=== PATIENT | female | born 1985 | race Caucasian/White ===

== ENCOUNTER 2017-03-13 16:48 | Emergency (ER) | payer BC ==
--- NOTE | 2017-03-13 17:30 | EDM.PDOC ---
ED HPI GENERAL MEDICAL PROBLEM - General Chief Complaint: Respiratory Problem Stated Complaint: WHEN BREATHING PAIN/CHEST ABDOMEN Time Seen by Provider: 03/13/17 16:55 - History of Present Illness INITIAL COMMENTS - FREE TEXT/NARRATIVE: HISTORY AND PHYSICAL: History of present illness: This is a 32-year-old female presenting to the emergency department complaining of rib pain. Patient tells me that it has been ongoing since this past Saturday. She also complains of pain when exhaling. Denies any trauma. Denies any specific chest pain. No radiating pain. Denies any nausea or vomiting. Review of systems: As per history of present illness and below otherwise all systems reviewed and negative. Past medical history: As per history of present illness and as reviewed below otherwise noncontributory. Surgical history: As per history of present illness and as reviewed below otherwise noncontributory. Social history: No reported history of drug or alcohol abuse. Family history: As per history of present illness and as reviewed below otherwise noncontributory. Physical exam: HEENT: Atraumatic, normocephalic, pupils reactive, negative for conjunctival pallor or scleral icterus, mucous membranes moist, throat clear, neck supple, nontender, trachea midline. Lungs: Clear to auscultation, breath sounds equal bilaterally, tenderness to palpation over the chest wall.. Heart: S1S2, regular, negative for clicks, rubs, or JVD. Abdomen: Soft, nondistended, nontender. Negative for masses or hepatosplenomegaly. Negative for costovertebral tenderness. Pelvis: Stable nontender. Genitourinary: Deferred. Rectal: Deferred. Extremities: Atraumatic, negative for cords or calf pain. Neurovascular unremarkable. Neuro: Awake, alert, oriented. Cranial nerves II through XII unremarkable. Cerebellum unremarkable. Motor and sensory unremarkable throughout. Exam nonfocal. Diagnostics: Chest x-ray CBC CMP troponin and EKG beta hCG lipase Therapeutics: Toradol 60mg IM once Impression: Costochondritis Plan: Discharge home. Follow-up with primary care provider. Naproxen 500 mg twice a day 14 days #28 0 refills Upper Epigastric Pain Score (Numeric/FACES): 7 - Related Data Allergies Allergy/AdvReac Type Severity Reaction Status Date / Time No Known Allergies Allergy Verified 11/01/14 15:24 CDT Home Meds: Home Meds Lisinopril 10 mg PO DAILY 03/13/17 [History] Naproxen 500 mg PO BID PRN #28 tablet 03/13/17 [Rx] Past Medical History HEENT History: Reports: None Cardiovascular History: Reports: Hypertension Respiratory History: Reports: None Gastrointestinal History: Reports: None Genitourinary History: Reports: None Musculoskeletal History: Reports: None Neurological History: Reports: None Psychiatric History: Reports: None Endocrine/Metabolic History: Reports: None Hematologic History: Reports: None Immunologic History: Reports: None Oncologic (Cancer) History: Reports: None Dermatologic History: Reports: None - Infectious Disease History Infectious Disease History: Reports: Chicken Pox - Past Surgical History Head Surgeries/Procedures: Reports: None Female Surgical History: Reports: Section Musculoskeletal Surgical History: Reports: Arthroscopic Knee Social & Family History - Family History Family Medical History: Noncontributory Endocrine/Metabolic: Reports: Diabetes, type II Oncologic: Reports: Thyroid - Tobacco Use Smoking Status *Q: Current Every Day Smoker Years of Tobacco use: 8 Packs/Tins Daily: 0.5 - Caffeine Use Caffeine Use: Reports: Coffee, Tea - Alcohol Use Days Per Week of Alcohol Use: 0 - Recreational Drug Use Recreational Drug Use: No - Living Situation & Occupation Occupation: Employed ED ROS GENERAL - Review of Systems Review Of Systems: See Below (see dictation) ED EXAM, GENERAL - Physical Exam Exam: See Below (see dictation) Course - Vital Signs Text/Narrative:: 32-year-old female in no significant past history who presented with a chief complaint of rib pain and an discomfort with exhalation. Workup was done and she indicated a normal chest x-ray, EKG, CBC and CMP. Given the reproducible pain on palpation I do feel that it was costochondritis. Patient was advised to take an anti-inflammatory such as the one prescribed, naproxen. Patient was advised follow-up with primary care provider. Patient agrees to the plan. Last Recorded V/S: Last Vital Signs Temp 36.3 C 03/13/17 17:04 CDT Pulse 77 03/13/17 18:58 CDT Resp 16 03/13/17 18:58 CDT BP 126/85 03/13/17 18:58 CDT Pulse Ox 95 03/13/17 18:58 CDT - Orders/Labs/Meds Labs: Laboratory Tests 08/03/13/17 03/13/17 Range/Units 17:34 CDT 17:34 CDT 17:34 CDT WBC 10.29 (4.0-11.0) K/uL RBC 4.29 L (4.30-5.90) M/uL Hgb 13.6 (12.0-16.0) g/dL Hct 39.3 (36.0-46.0) % MCV 91.6 (80.0-98.0) fL MCH 31.7 (27.0-32.0) pg MCHC 34.6 (31.0-37.0) g/dL RDW Std Deviation 43.1 (28.0-62.0) fl RDW Coeff of Mayra 13 (11.0-15.0) % Plt Count 299 (150-400) K/uL MPV 10.70 (7.40-12.00) fL Neut % (Auto) 62.1 (48.0-80.0) % Lymph % (Auto) 29.0 (16.0-40.0) % Woodward % (Auto) 6.8 (0.0-15.0) % Eos % (Auto) 1.9 (0.0-7.0) % Baso % (Auto) 0.2 (0.0-1.5) % Neut # (Auto) 6.4 H (1.4-5.7) K/uL Lymph # (Auto) 3.0 H (0.6-2.4) K/uL Woodward # (Auto) 0.7 (0.0-0.8) K/uL Eos # (Auto) 0.2 (0.0-0.7) K/uL Baso # (Auto) 0.0 (0.0-0.1) K/uL Nucleated RBC % 0.0 /100WBC Nucleated RBCs # 0 K/uL Sodium 139 (136-146) mmol/L Potassium 3.7 (3.5-5.1) mmol/L Chloride 108 (98-110) mmol/L Carbon Dioxide 22 (21-31) mmol/L BUN 15 (6.0-23.0) mg/dL Creatinine 0.7 (0.6-1.5) mg/dL Est Cr Clr Drug Dosing 96.33 mL/min Estimated GFR (MDRD) > 60.0 ml/min Glucose 100 (60-110) mg/dL Calcium 9.3 (8.8-10.8) mg/dL Total Bilirubin 0.3 (0.1-1.5) mg/dL AST 15 (5-40) IU/L ALT 18 (8-54) IU/L Alkaline Phosphatase 63 (40-150) Troponin I (0.0-0.29) NG/ML Total Protein 7.1 (6.0-8.0) g/dL Albumin 4.3 (3.5-5.0) g/dL Globulin 2.8 (2.0-3.5) g/dL Albumin/Globulin Ratio 1.5 (1.3-2.8) Lipase 19 (7-80) U/L HCG, Qual NEGATIVE (NEG) 03/13/17 Range/Units 17:34 CDT WBC (4.0-11.0) K/uL RBC (4.30-5.90) M/uL Hgb (12.0-16.0) g/dL Hct (36.0-46.0) % MCV (80.0-98.0) fL MCH (27.0-32.0) pg MCHC (31.0-37.0) g/dL RDW Std Deviation (28.0-62.0) fl RDW Coeff of Mayra (11.0-15.0) % Plt Count (150-400) K/uL MPV (7.40-12.00) fL Neut % (Auto) (48.0-80.0) % Lymph % (Auto) (16.0-40.0) % Woodward % (Auto) (0.0-15.0) % Eos % (Auto) (0.0-7.0) % Baso % (Auto) (0.0-1.5) % Neut # (Auto) (1.4-5.7) K/uL Lymph # (Auto) (0.6-2.4) K/uL Woodward # (Auto) (0.0-0.8) K/uL Eos # (Auto) (0.0-0.7) K/uL Baso # (Auto) (0.0-0.1) K/uL Nucleated RBC % /100WBC Nucleated RBCs # K/uL Sodium (136-146) mmol/L Potassium (3.5-5.1) mmol/L Chloride (98-110) mmol/L Carbon Dioxide (21-31) mmol/L BUN (6.0-23.0) mg/dL Creatinine (0.6-1.5) mg/dL Est Cr Clr Drug Dosing mL/min Estimated GFR (MDRD) ml/min Glucose (60-110) mg/dL Calcium (8.8-10.8) mg/dL Total Bilirubin (0.1-1.5) mg/dL AST (5-40) IU/L ALT (8-54) IU/L Alkaline Phosphatase (40-150) Troponin I < 0.10 (0.0-0.29) NG/ML Total Protein (6.0-8.0) g/dL Albumin (3.5-5.0) g/dL Globulin (2.0-3.5) g/dL Albumin/Globulin Ratio (1.3-2.8) Lipase (7-80) U/L HCG, Qual (NEG) Meds: Medications Discontinued Medications Generic Name Dose Route Start Last Admin Trade Name Freq PRN Reason Stop Dose Admin Ketorolac Tromethamine 30 mg 03/13/17 17:37 CDT 03/13/17 17:50 CDT Toradol IVPUSH 03/13/17 17:38 CDT Not Given ONETIME ONE Ketorolac Tromethamine 60 mg 03/13/17 17:45 CDT 03/13/17 18:06 CDT Toradol IM 03/13/17 17:46 CDT 60 mg ONETIME ONE Administration Departure - Departure Time of Disposition: 18:23 Disposition: Home, Self-Care 01 Condition: Good Clinical Impression: Costochondritis - Discharge Information Prescriptions: Naproxen 500 mg PO BID PRN #28 tablet PRN Reason: Pain Instructions: Costochondritis, [id number] Referrals: Rom Oneil DO [Primary Care Provider] - Forms: ED Department Discharge
[2017-03-13] MEDS ORDERED: Ketorolac 30 MG/ML SDV IVPUSH ONE (17:37)
[2017-03-13] MEDS ORDERED: Ketorolac 60 MG/2 ML SDV IM ONE (17:45)
[2017-03-13 18:05] LABS: CHLORIDE,CL 108 mmol/L (98-110); SODIUM,NA 139 mmol/L (136-146)
[2017-03-13 18:59] VITALS: BP 126/85
--- NOTE | 2017-03-14 11:07 | CR ---
EXAM DATE: 03/13/17 PATIENT'S AGE: 32 Patient: LYLY RAPP Facility: [facility], [place] Site . Site : 1985 Study: XRay Chest [id number]/23/2017 6:17:17 PM Ordering Physician: Osmar Sofia Final Report: INDICATION: Short of breath. Technique: Chest, single view. Impression: Normal heart size. No consolidation, effusion or pneumothorax. Possible nodule versus an area of parenchymal superimposition ,this is in the medial right upper lobe and is projected over the medial aspect of the right 1st rib. Suggest a follow up PA a standard chest radiograph for evaluation. Dictated by Iker Dutta MD @ Mar 13 2017 6:53PM (Electronic Signature) Report Signed by Proxy. PRASHANT
== END 2017-03-13 18:59 | disposition home or self-care (01) ==
LOC: MW.ED 16:48
DX: M94.0 Chondrocostal junction syndrome [Tietze] (principal); F17.210 Nicotine dependence, cigarettes, uncomplicated; Z98.890 Other specified postprocedural states; Z79.899 Other long term (current) drug therapy
CPT/HCPCS: 36415; 71010; 80053; 83690; 84484; 84703; 85025; 93005; 96372; 99284; J1885; 99283

== ENCOUNTER 2017-06-24 13:42 | Emergency (ER) | payer BC ==
[2017-06-24] MEDS ORDERED: Ketorolac 60 MG/2 ML SDV IM ONE (14:25)
--- NOTE | 2017-06-24 14:44 | EDM.PDOC ---
ED HPI GENERAL MEDICAL PROBLEM - General Chief Complaint: Upper Extremity Injury/Pain Stated Complaint: RT SHOULDER PAIN Time Seen by Provider: 06/24/17 13:44 Source of Information: Reports: Patient History Limitations: Reports: No Limitations - History of Present Illness INITIAL COMMENTS - FREE TEXT/NARRATIVE: HISTORY AND PHYSICAL: History of present illness: Patient is a 32-year-old female who presents to the emergency room today with complaints of right shoulder pain 4 days. She states that the pain started in her upper neck and radiates mainly into the right shoulder. She has a tingling sensation that runs down her right arm and into her fingertips. She is concerned that she is losing some filter tip catcher strength and of the paresthesias. She denies any previous injury or surgery to the affected extremity or cervical spine. Denies any recent trauma or injuries. Denies any headache, change in vision, urinary or bowel incontinence Denies any fever, chills, chest pain, shortness of breath. Denies any chance of , history of tubal ligation. Review of systems: As per history of present illness and below otherwise all systems reviewed and negative. Past medical history: As per history of present illness and as reviewed below otherwise noncontributory. Surgical history: As per history of present illness and as reviewed below otherwise noncontributory. Social history: No reported history of drug or alcohol abuse. Family history: As per history of present illness and as reviewed below otherwise noncontributory. Physical exam: HEENT: Atraumatic, normocephalic, pupils reactive, negative for conjunctival pallor or scleral icterus, mucous membranes moist, throat clear, neck supple, nontender, trachea midline. Cervical spine/Back: No nuchal rigidity. No pin point vertebral tenderness, crepitus, obvious deformities or step-offs. Able to walk on her toes and heels appropriately. Lungs: Clear to auscultation, breath sounds equal bilaterally, chest nontender. Heart: S1S2, regular, negative for clicks, rubs, or JVD. Abdomen: Soft, nondistended, nontender. Negative for masses or hepatosplenomegaly. Negative for costovertebral tenderness. Pelvis: Stable nontender. Genitourinary: Deferred. Rectal: Deferred. Extremities: Atraumatic, full range of motion to all extremities, has increased pain with range of motion of the right shoulder (when lifting straight up in air ). Equal and strong upper extremity hand grasp. Strong radial pulses bilaterally. CMS is intact bilaterally. Patient does have muscular tenderness when pressing along the scapula on the right. Neurovascular unremarkable. Skin: Warm, dry, and intact. No rashes or lesions noted. Neuro: Awake, alert, oriented. Cranial nerves II through XII unremarkable. Cerebellum unremarkable. Motor and sensory unremarkable throughout. Exam nonfocal. The CT and x-ray results were discussed with the patient. We talked about her following up with the orthopedic provider in the next week or so for further evaluation. If she continues to have pain they may want to do further imaging such as an MRI. Will prescribe the patient a Medrol Dosepak and Cataflam 1 tab 3 times a day when necessary, dispense 20 no refills. Patient voices understanding and is agreeable to plan of care. Denies any further questions at this time. Diagnostics: CT cervical spine, x-ray right shoulder Therapeutics: Toradol Impression: Right shoulder pain Plan: 1. Your x-ray and CT scan were normal today. Please take the steroid and anti- inflammatory as directed. Gentle heat may be applied to the area for comfort. Discussed you should follow-up with orthopedic in the next week or so for further evaluation if you continue to have pain. 2. Follow-up with her primary caregiver in the next 1-2 days. Return to the ED as needed and as discussed. Definitive disposition and diagnosis as appropriate pending reevaluation and review of above. Duration: Day(s): Location: Reports: Upper Extremity, Right Right Shoulder Pain Score (Numeric/FACES): 10 - Related Data Allergies Allergy/AdvReac Type Severity Reaction Status Date / Time No Known Allergies Allergy Verified 06/24/17 14:12 Home Meds: Home Meds Lisinopril 10 mg PO DAILY 03/13/17 [History] Past Medical History HEENT History: Reports: None Cardiovascular History: Reports: Hypertension Respiratory History: Reports: None Gastrointestinal History: Reports: None Genitourinary History: Reports: None Musculoskeletal History: Reports: None Neurological History: Reports: None Psychiatric History: Reports: None Endocrine/Metabolic History: Reports: None Hematologic History: Reports: None Immunologic History: Reports: None Oncologic (Cancer) History: Reports: None Dermatologic History: Reports: None - Infectious Disease History Infectious Disease History: Reports: Chicken Pox - Past Surgical History Head Surgeries/Procedures: Reports: None Female Surgical History: Reports: Section Musculoskeletal Surgical History: Reports: Arthroscopic Knee Social & Family History - Family History Family Medical History: Noncontributory Endocrine/Metabolic: Reports: Diabetes, type II Oncologic: Reports: Thyroid - Tobacco Use Smoking Status *Q: Current Every Day Smoker Years of Tobacco use: 9 Packs/Tins Daily: 0.5 - Caffeine Use Caffeine Use: Reports: Coffee - Alcohol Use Days Per Week of Alcohol Use: 0 - Recreational Drug Use Recreational Drug Use: No - Living Situation & Occupation Occupation: Employed Review of Systems - Review of Systems Review Of Systems: ROS reveals no pertinent complaints other than HPI. ED EXAM, GENERAL - Physical Exam Exam: See Below (See dictation) Course - Vital Signs Last Recorded V/S: Last Vital Signs Temp 98.6 F 06/24/17 14:13 Pulse 79 06/24/17 14:13 Resp 14 06/24/17 14:13 BP 128/71 06/24/17 14:13 Pulse Ox 96 06/24/17 14:13 - Orders/Labs/Meds Meds: Medications Discontinued Medications Generic Name Dose Route Start Last Admin Trade Name Freq PRN Reason Stop Dose Admin Ketorolac Tromethamine 60 mg 06/24/17 14:25 06/24/17 14:40 Toradol IM 06/24/17 14:26 60 mg ONETIME ONE Administration Departure - Departure Time of Disposition: 15:55 Disposition: Home, Self-Care 01 Clinical Impression: Shoulder pain, right Qualifiers: Chronicity: acute Qualified Code(s): M25.511 - Pain in right shoulder - Discharge Information Referrals: PCP,None [Primary Care Provider] - Forms: ED Department Discharge Additional Instructions: My general discharge The following information is given to patients seen in the emergency department who are being discharged to home. This information is to outline your options for follow-up care. We provide all patients seen in our emergency department with a follow-up referral. The need for follow-up, as well as the timing and circumstances, are variable depending upon the specifics of your emergency department visit. If you don't have a primary care physician on staff, we will provide you with a referral. We always advise you to contact your personal physician following an emergency department visit to inform them of the circumstance of the visit and for follow-up with them and/or the need for any referrals to a consulting specialist. The emergency department will also refer you to a specialist when appropriate. This referral assures that you have the opportunity for follow-up care with a specialist. All of these measure are taken in an effort to provide you with optimal care, which includes your follow-up. Under all circumstances we always encourage you to contact your private physician who remains a resource for coordinating your care. When calling for follow-up care, please make the office aware that this follow-up is from your recent emergency room visit. If for any reason you are refused follow-up, please contact the [facility] at and asked to speak to the emergency department charge nurse. [facility] [address], [address] [place] [address] 1. Your x-ray and CT scan were normal today. Please take the steroid and anti- inflammatory as directed. Gentle heat may be applied to the area for comfort. Discussed you should follow-up with orthopedic in the next week or so for further evaluation if you continue to have pain. 2. Follow-up with her primary caregiver in the next 1-2 days. Return to the ED as needed and as discussed.
--- NOTE | 2017-06-24 15:17 | CR ---
EXAMINATION: Right shoulder HISTORY: Pain COMPARISON: None TECHNIQUE: 3 views FINDINGS/IMPRESSION: There is no acute osseous abnormality, dislocation, or fracture. All mineralizat ion and joint spaces appear normal.
--- NOTE | 2017-06-24 15:20 | CT ---
EXAMINATION: CT cervical spine HISTORY: Pain COMPARISON: Radiographs dated 04/23/2016 TECHNIQUE: Axial CT images obtained through the cervical spine without contrast. Coronal and sagittal reconstructions obtained. FINDINGS: The cervical spinal alignment appears normal. The vertebral body heights and disc spaces ap pear well-maintained. No fracture or dislocation. Bone mineralization is normal. The paravertebral so ft tissues appear normal. The lung apices are clear. The visualized intracranial compartments appear normal. IMPRESSION: Unremarkable CT cervical spine.
[2017-06-24 16:25] VITALS: BP 112/64
== END 2017-06-24 16:19 | disposition home or self-care (01) ==
LOC: MW.ED 13:42
DX: M25.511 Pain in right shoulder (principal); I10 Essential (primary) hypertension; F17.210 Nicotine dependence, cigarettes, uncomplicated; Z79.899 Other long term (current) drug therapy
CPT/HCPCS: 72125; 73030; 96372; 99283; J1885

== ENCOUNTER 2017-07-29 13:55 | Emergency (ER) | payer BC ==
--- NOTE | 2017-07-29 14:00 | EDM.PDOC ---
ED HPI GENERAL MEDICAL PROBLEM - General Chief Complaint: Fever Stated Complaint: COLD,FEVER Time Seen by Provider: 07/29/17 14:00 Source of Information: Reports: Patient History Limitations: Reports: No Limitations - History of Present Illness INITIAL COMMENTS - FREE TEXT/NARRATIVE: HISTORY AND PHYSICAL: History of present illness: Patient is a 32-year-old female who presents to the emergency room today with complaints of a cough. She states she was diagnosed with influenza last week and was actually hospitalized for IV fluids and fever management. She was discharged to home with [place] and off throughout. She states since her discharge she feels like her cough is becoming more productive and she is concerned she may have a pneumonia. Review of systems: As per history of present illness and below otherwise all systems reviewed and negative. Past medical history: As per history of present illness and as reviewed below otherwise noncontributory. Surgical history: As per history of present illness and as reviewed below otherwise noncontributory. Social history: No reported history of drug or alcohol abuse. Family history: As per history of present illness and as reviewed below otherwise noncontributory. Physical exam: Gen.: Well-developed and well-nourished 32-year-old female. Alert and oriented. Nontoxic appearing. HEENT: Atraumatic, normocephalic, pupils reactive, negative for conjunctival pallor or scleral icterus, mucous membranes moist, tympanic membranes normal bilaterally, throat clear, neck supple, nontender, trachea midline. Lungs: Clear to auscultation, breath sounds equal bilaterally, chest nontender. Heart: S1S2, regular rate and rhythm Abdomen: Soft, nondistended, nontender. Negative for masses or hepatosplenomegaly. Negative for costovertebral tenderness. Pelvis: Stable nontender. Genitourinary: Deferred. Rectal: Deferred. Extremities: Atraumatic, cell extremities herself without difficulty or deficits , negative for cords or calf pain. Neurovascular unremarkable. Neuro: Awake, alert, oriented. Cranial nerves II through XII unremarkable. Cerebellum unremarkable. Motor and sensory unremarkable throughout. Exam nonfocal. Labs and chest x-ray are negative. Will treat the cough and fever as a bronchitis with Z-pack and inhaler PRN. Tessalon Perles have been given for cough. She may continue to use the cough syrup and [place] she has at home. Started her to follow up with her primary care provider in the next 1-2 days. She is agreeable and voices understanding. Diagnostics: CBC, CMP, chest x-ray Therapeutics: Chao Impression: History of influenza Bronchitis Plan: 1. Azithromycin, Tessalone Pearls, and Inhaler have been prescribed for you and have been sent to your pharmacy, for pickup. 2. Please continue to provide supportive care measures Haldol and/or ibuprofen as needed for pain and fever management. Coolmist humidifier may be beneficial. Small frequent sips of fluids to prevent dehydration. 3. Follow up with her primary care provider in the next 1-2 days. Return to the ED as needed and as discussed. Definitive disposition and diagnosis as appropriate pending reevaluation and review of above. Chest Pain Score (Numeric/FACES): 7 - Related Data Allergies Allergy/AdvReac Type Severity Reaction Status Date / Time No Known Allergies Allergy Verified 07/29/17 14:17 Home Meds: Home Meds Lisinopril 10 mg PO DAILY 03/13/17 [History] Albuterol [Ventolin HFA] 1 puff INH Q4H #1 inhaler 07/29/17 [Rx] Azithromycin [Zithromax] 250 mg PO DAILY 5 Days #6 tablet 07/29/17 [Rx] Benzonatate [Tessalon Perles] 100 mg PO TID PRN 10 Days #30 cap 07/29/17 [Rx] Past Medical History HEENT History: Reports: None Cardiovascular History: Reports: Hypertension Respiratory History: Reports: None Gastrointestinal History: Reports: None Genitourinary History: Reports: None Musculoskeletal History: Reports: None Neurological History: Reports: None Psychiatric History: Reports: None Endocrine/Metabolic History: Reports: None Hematologic History: Reports: None Immunologic History: Reports: None Oncologic (Cancer) History: Reports: None Dermatologic History: Reports: None - Infectious Disease History Infectious Disease History: Reports: Chicken Pox - Past Surgical History Head Surgeries/Procedures: Reports: None Female Surgical History: Reports: Section Musculoskeletal Surgical History: Reports: Arthroscopic Knee Social & Family History - Family History Family Medical History: Noncontributory Endocrine/Metabolic: Reports: Diabetes, type II Oncologic: Reports: Thyroid - Tobacco Use Smoking Status *Q: Current Every Day Smoker Years of Tobacco use: 9 Packs/Tins Daily: 0.5 - Caffeine Use Caffeine Use: Reports: Coffee - Alcohol Use Days Per Week of Alcohol Use: 0 - Recreational Drug Use Recreational Drug Use: No - Living Situation & Occupation Occupation: Employed ED ROS GENERAL - Review of Systems Review Of Systems: ROS reveals no pertinent complaints other than HPI. ED EXAM, GENERAL - Physical Exam Exam: See Below (See dictation) Course - Vital Signs Last Recorded V/S: Last Vital Signs Temp 99.0 F 07/29/17 14:13 Pulse 96 07/29/17 14:13 Resp 18 07/29/17 14:13 BP 128/75 07/29/17 14:13 Pulse Ox 96 07/29/17 14:13 - Orders/Labs/Meds Orders: Active Orders 24 hr Category Date Time Status RT Aerosol Therapy [RC] ASDIRECTED Care 07/29/17 14:31 Active Labs: Laboratory Tests 07/29/17 07/29/17 Range/Units 14:38 14:38 WBC 10.13 (4.0-11.0) K/uL RBC 4.20 L (4.30-5.90) M/uL Hgb 13.4 (12.0-16.0) g/dL Hct 37.8 (36.0-46.0) % MCV 90.0 (80.0-98.0) fL MCH 31.9 (27.0-32.0) pg MCHC 35.4 (31.0-37.0) g/dL RDW Std Deviation 43.8 (28.0-62.0) fl RDW Coeff of Mayra 13 (11.0-15.0) % Plt Count 237 (150-400) K/uL MPV 10.50 (7.40-12.00) fL Neut % (Auto) 73.5 (48.0-80.0) % Lymph % (Auto) 19.9 (16.0-40.0) % [place] % (Auto) 6.3 (0.0-15.0) % Eos % (Auto) 0.2 (0.0-7.0) % Baso % (Auto) 0.1 (0.0-1.5) % Neut # (Auto) 7.4 H (1.4-5.7) K/uL Lymph # (Auto) 2.0 (0.6-2.4) K/uL [place] # (Auto) 0.6 (0.0-0.8) K/uL Eos # (Auto) 0.0 (0.0-0.7) K/uL Baso # (Auto) 0.0 (0.0-0.1) K/uL Nucleated RBC % 0.0 /100WBC Nucleated RBCs # 0 K/uL Sodium 136 (136-146) mmol/L Potassium 3.9 (3.5-5.1) mmol/L Chloride 105 (98-110) mmol/L Carbon Dioxide 20 L (21-31) mmol/L BUN 10 (6.0-23.0) mg/dL Creatinine 0.6 (0.6-1.5) mg/dL Est Cr Clr Drug Dosing 107.45 mL/min Estimated GFR (MDRD) > 60.0 ml/min Glucose 81 (60-110) mg/dL Calcium 9.0 (8.8-10.8) mg/dL Total Bilirubin 0.4 (0.1-1.5) mg/dL AST 21 (5-40) IU/L ALT 22 (8-54) IU/L Alkaline Phosphatase 66 (40-150) Total Protein 7.3 (6.0-8.0) g/dL Albumin 4.4 (3.5-5.0) g/dL Globulin 2.9 (2.0-3.5) g/dL Albumin/Globulin Ratio 1.5 (1.3-2.8) Meds: Medications Discontinued Medications Generic Name Dose Route Start Last Admin Trade Name Freq PRN Reason Stop Dose Admin Albuterol/Ipratropium 3 ml 07/29/17 14:31 07/29/17 14:35 Duoneb 3.0-0.5 Mg/3 Ml NEB 07/29/17 14:32 3 ml ONETIME ONE Administration Departure - Departure Time of Disposition: 15:27 Disposition: Home, Self-Care 01 Clinical Impression: Bronchitis, History of influenza - Discharge Information Prescriptions: Albuterol [Ventolin HFA] 1 puff INH Q4H #1 inhaler Azithromycin [Zithromax] 250 mg PO DAILY 5 Days #6 tablet Benzonatate [Tessalon Perles] 100 mg PO TID PRN 10 Days #30 cap PRN Reason: Cough Referrals: PCP,None [Primary Care Provider] - Forms: ED Department Discharge Additional Instructions: My general discharge The following information is given to patients seen in the emergency department who are being discharged to home. This information is to outline your options for follow-up care. We provide all patients seen in our emergency department with a follow-up referral. The need for follow-up, as well as the timing and circumstances, are variable depending upon the specifics of your emergency department visit. If you don't have a primary care physician on staff, we will provide you with a referral. We always advise you to contact your personal physician following an emergency department visit to inform them of the circumstance of the visit and for follow-up with them and/or the need for any referrals to a consulting specialist. The emergency department will also refer you to a specialist when appropriate. This referral assures that you have the opportunity for follow-up care with a specialist. All of these measure are taken in an effort to provide you with optimal care, which includes your follow-up. Under all circumstances we always encourage you to contact your private physician who remains a resource for coordinating your care. When calling for follow-up care, please make the office aware that this follow-up is from your recent emergency room visit. If for any reason you are refused follow-up, please contact the [facility] at and asked to speak to the emergency department charge nurse. [facility] [address] [place] [id number] 1. Azithromycin, Tessalone Pearls, and Inhaler have been prescribed for you and have been sent to your pharmacy, for pickup. 2. Please continue to provide supportive care measures Haldol and/or ibuprofen as needed for pain and fever management. Coolmist humidifier may be beneficial. Small frequent sips of fluids to prevent dehydration. 3. Follow up with her primary care provider in the next 1-2 days. Return to the ED as needed and as discussed. - My Orders Last 24 Hours: My Active Orders 07/29/17 14:31 RT Aerosol Therapy [RC] ASDIRECTED - Assessment/Plan Last 24 Hours: My Active Orders 07/29/17 14:31 RT Aerosol Therapy [RC] ASDIRECTED
[2017-07-29 14:16] VITALS: BP 128/75
[2017-07-29] MEDS ORDERED: Albuterol/Ipratropium 3.0-0.5 MG/3 ML Neb Soln NEB ONE (14:31)
--- NOTE | 2017-07-29 15:15 | CR ---
EXAMINATION: Two-view chest (PA and Lateral views). HISTORY: Cough. FINDINGS: The trachea is midline. The cardiomediastinal silhouette is within normal limits. No pulmonary infilt rates, effusions or pneumothorax. Osseous structures appear unremarkable. IMPRESSION: No acute cardiopulmonary process.
[2017-07-29 15:26] LABS: CHLORIDE,CL 105 mmol/L (98-110); SODIUM,NA 136 mmol/L (136-146)
== END 2017-07-29 15:56 | disposition home or self-care (01) ==
LOC: MW.ED 13:55
DX: J40 Bronchitis, not specified as acute or chronic (principal); I10 Essential (primary) hypertension; F17.210 Nicotine dependence, cigarettes, uncomplicated; Z79.899 Other long term (current) drug therapy; Z87.09 Personal history of other diseases of the respiratory system
CPT/HCPCS: 36415; 71046; 71046-26; 80053; 85025; 94640; 99284; 99284-25